=== PATIENT | female | born 1975 | race African-American/Black ===

== ENCOUNTER 2017-09-14 02:01 | Emergency (ER) | payer OTHER ==
[~2017-09-14] VITALS: Ht 160 cm; Wt 104.3 kg
[~2017-09-14 02:01] MED LIST: ALLERGY10 MG PO; AMOXICILLIN875 MG PO; ANTIVERT25 MG PO; BENADRYL25 MG PO; BENTYL 10 MG CA10 M1 PO; EXCEDRIN CAPLE1 EACH PO; FLEXERIL PO; HYDROCODONE-AP1 EAC6 PO; IBUPROFEN 200200 M1 PO; IBUPROFEN 800800 M1 PO; PENICILLIN V P500 MG PO; PREDNISONE 10 M10 MG PO; PREDNISONE 20 M20 MG PO; TESSALON PERLE100 MG PO; VENTOLIN HFA 1818 GM INH; ZOFRAN ODT4 MG PO; ZOFRAN ODT4 MG SUBLING; ZPAK PO
[2017-09-14 02:50] LABS: ABSOLUTE EOSINOPHILS 0.1 thou/uL (0.0-0.7); ABSOLUTE LYMPHOCYTES 2.7 thou/uL (0.8-5.3); ABSOLUTE MONOCYTES 0.7 thou/uL (0.0-1.2); ABSOLUTE NEUTROPHILS 5.9 thou/uL (1.6-8.1); BASOPHILS 0.3 %; EOSINOPHILS 0.9 %; HEMATOCRIT 39.4 % (37.0-47.0); HEMOGLOBIN 13.1 gm/dL (12.0-15.0); LYMPHOCYTES 28.6 %; MCHC 33.3 g/dL (28.0-37.0); MCV 87.2 fL (80.0-100.0); MONOCYTES 7.3 %; MPV 6.9 fl. (7.2-11.1); NUCLEATED RBCS 0 /100WBC; PLATELET COUNT* 386 thou/uL (150-400); POLYS 62.9 %; RBC 4.52 mil/uL (4.20-5.00); RDW-CV 13.9 % (10.5-14.5); WBC 9.3 thou/uL (4.0-11.0)
[2017-09-14 03:02] LABS: ANION GAP 7 mmol/L (7-16); BUN 14 mg/dL (7-18); CALCIUM 9.3 mg/dL (8.5-10.1); CHLORIDE 106 mmol/L (98-107); CO2 29 mmol/L (21-32); GLUCOSE 121 mg/dL (70-99); SODIUM 142 mmol/L (136-145)
[2017-09-14 03:12] LABS: ALBUMIN 3.5 g/dL (3.4-5.0); ALKALINE PHOSPHATASE 73 U/L (46-116); LIPASE 107 U/L (73-393); NT-PRO BRAIN NAT PEPTIDE 19 pg/mL (<300); SGOT 15 U/L (15-37); SGPT 24 U/L (30-65); TOTAL BILIRUBIN 0.6 mg/dL (<0.1-1.0); TOTAL PROTEIN 7.5 g/dL (6.4-8.2); TROPONIN-I LEVEL <0.06 ng/mL (<0.06)
[2017-09-14] MEDS ORDERED: PERCOCET 7.5-31 EACH PO (05:08)
[2017-09-14 05:24] VITALS: BP 141/87
--- NOTE | 2017-09-14 10:22 | EKG ---
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
== END 2017-09-14 05:28 | disposition home or self-care (01) ==
LOC: M.ERS 02:01
PROVIDERS: Emergency Medicine
DX: R07.89 Other chest pain (principal)

== ENCOUNTER 2019-11-01 08:00 | Emergency (ER) | payer OTHER ==
[~2019-11-01] VITALS: Ht 160 cm; Wt 122.5 kg
[~2019-11-01 08:00] MED LIST changes: +PERCOCET 7.5-31 EACH PO
[2019-11-01] MEDS ORDERED: METFORMIN HCL500 M3 PO (08:09)
[2019-11-01 09:01] VITALS: BP 138/81
== END 2019-11-01 09:12 | disposition home or self-care (01) ==
LOC: M.ERS 08:00
DX: J06.9 Acute upper respiratory infection, unspecified (principal); H92.03 Otalgia, bilateral; E11.9 Type 2 diabetes mellitus without complications; J02.9 Acute pharyngitis, unspecified; Z90.710 Acquired absence of both cervix and uterus; Z90.49 Acquired absence of other specified parts of digestive tract

== ENCOUNTER 2020-06-15 04:10 | Emergency (ER) | payer OTHER ==
[~2020-06-15] VITALS: Ht 157.5 cm; Wt 136.1 kg
[~2020-06-15 04:10] MED LIST changes: +METFORMIN HCL500 M3 PO
[2020-06-15] MEDS ORDERED: MOTION RELIEF25 MG PO (05:13)
[2020-06-15 05:15] VITALS: BP 155/92
--- NOTE | 2020-06-16 13:40 | EKG ---
[place] [address] ELECTROCARDIOGRAM REPORT Name: HARPAL WEI Room: [facility]#: [id number] Admission: 06/15/20 Attend Phys: Discharge: 06/15/20 Date of : [birth year] Date of Service: 06/15/20 0418 Report #: [id number] THIS REPORT FOR: //name// [facility] ED Test Date: 2020-06-15 Test Time: 04:18:41 Pat Name: HARPAL WEI Department: Room: Gender: Park Guide: [facility] : 1975 Requested By: Sanjay Burgos Order Number: [id number] MD: Harlan Swartz Measurements Intervals [place] Rate: 97 P: 28 NM: 151 QRS: 42 QRSD: 83 T: 6 QT: 341 QTc: 433 Interpretive Statements Sinus rhythm Compared to ECG 09/14/2017 02:06:58 Sinus tachycardia no longer present Electronically Signed On 06-16-2020 13:40:45 CDT by Harlan Swartz [email or web address] <ELECTRONICALLY SIGNED> By: Harlan Swartz MD, [facility] 06/16/20 1340 0418 0418 Harlan Swartz MD, FACC /EPI
== END 2020-06-15 05:15 | disposition home or self-care (01) ==
LOC: M.ERS 04:10
DX: R42 Dizziness and giddiness (principal); R07.89 Other chest pain; E11.9 Type 2 diabetes mellitus without complications; Z90.49 Acquired absence of other specified parts of digestive tract; Z98.890 Other specified postprocedural states; Z90.710 Acquired absence of both cervix and uterus

== ENCOUNTER 2020-08-14 09:01 | Emergency (ER) | payer OTHER ==
[~2020-08-14] VITALS: Ht 157.5 cm; Wt 136.1 kg
[~2020-08-14 09:01] MED LIST changes: +MOTION RELIEF25 MG PO
[2020-08-14] MEDS ORDERED: METFORMIN HCL500 M3 PO (09:19)
[2020-08-14] MEDS ORDERED: NORCO 5-325 TA1 EAC2 PO ×2 (09:19→09:21)
[2020-08-14] MEDS ORDERED: FLEXERIL PO ×2 (09:19→09:21)
[2020-08-14 09:32] VITALS: BP 130/78
--- NOTE | 2020-08-15 13:10 | EKG ---
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
== END 2020-08-14 09:33 | disposition home or self-care (01) ==
LOC: M.ERS 09:01
DX: S46.812A Strain of other muscles, fascia and tendons at shoulder and upper arm level, left arm, initial encounter (principal); E11.9 Type 2 diabetes mellitus without complications; Z90.49 Acquired absence of other specified parts of digestive tract; Z90.710 Acquired absence of both cervix and uterus; Z98.890 Other specified postprocedural states; X58.XXXA Exposure to other specified factors, initial encounter; Y93.89 Activity, other specified; Y92.89 Other specified places as the place of occurrence of the external cause; Y99.8 Other external cause status

== ENCOUNTER 2021-08-12 09:33 | Emergency (ER) | payer OTHER ==
[~2021-08-12] VITALS: Ht 157.5 cm; Wt 129.3 kg
[~2021-08-12 09:33] MED LIST changes: +NORCO 5-325 TA1 EAC2 PO
[2021-08-12] MEDS ORDERED: OMEPRAZOLE10 MG PO (10:26)
[2021-08-12 11:35] LABS: ABSOLUTE LYMPHOCYTES 1.9 thou/uL (0.8-5.3); ABSOLUTE MONOCYTES 0.4 thou/uL (0.0-1.2); ABSOLUTE NEUTROPHILS 4.2 thou/uL (1.6-8.1); BASOPHILS 0.4 %; EOSINOPHILS 0.7 %; HEMATOCRIT 39.9 % (37.0-47.0); HEMOGLOBIN 13.4 gm/dL (12.0-15.0); LYMPHOCYTES 28.7 %; MCH 29.1 pg (26.0-34.0); MCHC 33.6 g/dL (28.0-37.0); MCV 86.7 fL (80.0-100.0); MONOCYTES 6.1 %; MPV 6.9 fl. (7.2-11.1); NUCLEATED RBCS 0 /100WBC; PLATELET COUNT* 352 thou/uL (150-400); POLYS 64.1 %; RDW-CV 13.3 % (10.5-14.5); WBC 6.6 thou/uL (4.0-11.0)
[2021-08-12 11:51] VITALS: BP 136/76
[2021-08-12 11:52] LABS: CREATININE 0.9 mg/dL (0.6-1.3); POTASSIUM 4.1 mmol/L (3.5-5.1)
[2021-08-12 11:56] LABS: ALBUMIN 3.5 g/dL (3.4-5.0); TOTAL BILIRUBIN 0.5 mg/dL (<0.1-1.0); TOTAL PROTEIN 7.3 g/dL (6.4-8.2)
--- NOTE | 2021-08-13 14:36 | EKG ---
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
== END 2021-08-12 11:52 | disposition home or self-care (01) ==
LOC: M.ERS 09:33
PROVIDERS: Family Medicine
DX: R51.9 Headache, unspecified (principal); H53.8 Other visual disturbances; R42 Dizziness and giddiness; Z90.710 Acquired absence of both cervix and uterus; Z90.49 Acquired absence of other specified parts of digestive tract; Z98.890 Other specified postprocedural states; Z79.899 Other long term (current) drug therapy